=== PATIENT | female | born 1990 | race African-American/Black ===

== ENCOUNTER 2019-01-05 10:30 | Emergency (ER) | payer OTHER ==
[2019-01-05] MEDS ORDERED: Morphine 4 MG/ML VIAL ONE (11:54)
[2019-01-05 12:22] LABS: BHCG - Serum POSITIVE (NEGATIVE); Pregs Control Background? CLEAR/WHITE (CLR/WHITE); Pregs Control Bar Appear? YES (CONTROL BAR)
--- NOTE | 2019-01-05 12:48 | RAD ---
Exam: One view pelvis HISTORY: Fall. Pain. Trauma. FINDINGS: There appear to be chronic changes along the visualized left and right hip. Sacroiliac joints are patent and symmetric Sacral alar are preserved Bony pelvis appears to be intact. IMPRESSION: Chronic changes in the left and right hip. No obvious bony pelvic fracture.
--- NOTE | 2019-01-05 12:48 | RAD ---
Exam:3 views left ankle HISTORY: Fall. Trauma. Pain. COMPARISON: None FINDINGS: No fracture. No cortical irregularity. No periosteal reaction. IMPRESSION: No fracture.
--- NOTE | 2019-01-05 12:49 | RAD ---
Exam:Left tibia fibula 2 views HISTORY: Fall. Pain. COMPARISON: None FINDINGS: No fracture. No cortical irregularity. No periosteal reaction. IMPRESSION: No fracture.
--- NOTE | 2019-01-05 12:51 | RAD ---
Exam:Left femur 2 views HISTORY: Fall. Trauma. Pain. COMPARISON: None FINDINGS: There is evidence of previous internal fixation hardware placement involving the proximal l eft femur. No evidence of perihardware lucency. There is evidence of bony remodeling, callus formation and bone hypertrophy. The femoral head and acetabulum have a slightly irregular appearance. There appears to be degenerative change. An acute fracture is not appreciated. If the patient is unable to bear weight, additional imaging can be performed. IMPRESSION: 1. Internal fixation of a previous left hip fracture. Remote trauma with resultant degenerative bosch es are noted. Obvious fracture is not appreciated. 2. If the patient is unable to bear weight, additional imaging can be performed.
--- NOTE | 2019-01-05 12:51 | RAD ---
LEFT KNEE 5 VIEWS: Date: 01/05/19 HISTORY: Injury. Trauma. FINDINGS: Moderate degenerative changes are present. Mild narrowing of both medial and lateral joint spaces. Pr ominent spurring from the lateral joint compartment and spurring from the posterior patella. No evide nce of joint effusion. No evidence of fracture. IMPRESSION: Moderate degenerative changes of left knee. POS: [facility]
--- NOTE | 2019-01-05 13:22 | RAD ---
2 VIEWS LEFT HIP: Date: 01/05/19 COMPARISON: None. HISTORY: Stepped on a cement step which caused her to twist her leg. Left leg pain. FINDINGS: 2 views of the left hip show hardware in the proximal aspect of the left femur from prior fracture re pair. There is significant hypertrophic bone in this location. No acute fracture or dislocation seen. 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 IMPRESSION: 1. No evidence of acute osseous abnormality. 2. Moderate left hip osteoarthritis. POS: [facility]
== END 2019-01-05 13:19 | disposition home or self-care (01) ==
LOC: ERS 10:30
DX: O99.89 Other specified diseases and conditions complicating pregnancy, childbirth and the puerperium (principal); M79.605 Pain in left leg; O10.911 Unspecified pre-existing hypertension complicating pregnancy, first trimester; O99.331 Smoking (tobacco) complicating pregnancy, first trimester; F17.210 Nicotine dependence, cigarettes, uncomplicated; Z3A.01 Less than 8 weeks gestation of pregnancy; X50.1XXA Overexertion from prolonged static or awkward postures, initial encounter
CPT/HCPCS: 72170; 84703; 96374; J2270

== ENCOUNTER 2019-01-08 19:55 | Emergency (ER) | payer OTHER ==
[2019-01-08 21:26] LABS: #Basophils 0.1 thou/uL (0.0-0.2); #Eosinphils 0.4 thou/uL (0.0-0.7); #Lymphocytes 2.7 thou/uL (1.20-3.40); #Monocytes 0.6 thou/uL (0.11-0.59); #Neutrophils 5.8 thou/uL (1.40-6.50); %Basophils 0.9 % (0.0-1.0); %Eosinophils 4.5 % (0.0-10.0); %Lymphocytes 27.9 % (21.0-51.0); %Monocytes 6.4 % (0.0-10.0); %Neutrophils 60.3 % (42.0-75.0); Hemoglobin 12.3 g/dL (12.0-16.0); Mean Corpuscular Volume 87.4 fL (78.0-98.0); Platelet Count 336 thou/uL (130-400); RBC Distribution Width 13.3 % (11.5-14.5); Red Blood Cell (RBC) Count 4.39 mill/uL (4.20-5.40); White Blood Cell (WBC) Count 9.7 thou/uL (4.8-10.8)
--- NOTE | 2019-01-08 21:49 | ULT ---
Exam: Endovaginal pelvic ultrasound HISTORY: Pelvic pain. No bleeding. TECHNIQUE: Endovaginal imaging of the pelvis is performed. Ovaries are interrogated grayscale, color flow, Doppler imaging and spectral waveform analysis FINDINGS: Uterus is identified measuring 6.0 x 11.3 x 7.1 cm. There appear to be 2 separate gestational sacs. 2 yolk sacs are appreciated. There is one pole with a crown-rump length of 2.01 cm corresponding to a gestational age of 8 w eeks 4 days. heart tones with a rate of 173 bpm There is a second pole with a crown-rump length of 1.97 cm corresponding to gestational age of 8 weeks 4 days. heart tones with a rate of 175 bpm. There is no subchorionic hemorrhage. No free fluid Right ovary has a normal echotexture and measures 3.5 x 2.7 x 2.3 cm Left ovary has a normal echotexture measures 2.4 x 1.1 x 2.2 cm Ovarian Doppler: Vascular flow to the left and right ovary IMPRESSION: Twin intrauterine gestation with heart tones. Gestational age by crown-rump length is 8 weeks a nd 4 days Transcribed Date/Time: 01/08/2019 10:32 PM
[2019-01-08 22:48] LABS: Bilirubin Negative (Negative); Blood, Urine Negative (Negative); Clarity Clear (Clear); Glucose, Urine (Dipstick) Normal (Negative); Leukocyte Negative Leu/uL (Negative); Nitrite Negative (Negative); Protein, Urine (Dipstick) 30 mg/dL (Neg-Trace); RBC/HPF 0-3 HPF (0-3); Urobilinogen Normal mg/dL (Less than 2); WBC/HPF 0-3 HPF (0-3)
[2019-01-08 22:58] LABS: Bacteria/HPF 1+ HPF (None Seen)
== END 2019-01-08 23:13 | disposition home or self-care (01) ==
LOC: ERS 19:55
DX: O99.89 Other specified diseases and conditions complicating pregnancy, childbirth and the puerperium (principal); R10.30 Lower abdominal pain, unspecified; O99.331 Smoking (tobacco) complicating pregnancy, first trimester; F17.210 Nicotine dependence, cigarettes, uncomplicated; O16.1 Unspecified maternal hypertension, first trimester; Z3A.08 8 weeks gestation of pregnancy
CPT/HCPCS: 76856; 81003; 81015; 84702; 85025

== ENCOUNTER 2019-02-07 17:40 | Emergency (ER) | payer OTHER ==
[2019-02-07 18:16] LABS: #Basophils 0.1 thou/uL (0.0-0.2); #Eosinphils 0.3 thou/uL (0.0-0.7); #Lymphocytes 2.2 thou/uL (1.20-3.40); #Monocytes 0.9 thou/uL (0.11-0.59); #Neutrophils 4.2 thou/uL (1.40-6.50); %Basophils 1.3 % (0.0-1.0); %Lymphocytes 28.3 % (21.0-51.0); %Monocytes 11.3 % (0.0-10.0); %Neutrophils 55.2 % (42.0-75.0); Hemoglobin 12.2 g/dL (12.0-16.0); Mean Corpuscular HGB CONC 33.6 g/dL (32.0-36.0); Mean Corpuscular Volume 86.5 fL (78.0-98.0); Mean Platelet Volume 7.2 fL (7.4-10.4); Platelet Count 259 thou/uL (130-400); RBC Distribution Width 13.3 % (11.5-14.5); Red Blood Cell (RBC) Count 4.21 mill/uL (4.20-5.40); White Blood Cell (WBC) Count 7.7 thou/uL (4.8-10.8)
[2019-02-07 18:38] LABS: ALT (SGPT) 14 U/L (8-55); AST (SGOT) 13 U/L (5-34); Albumin 3.4 g/dL (3.5-5.0); Alkaline Phosphatase 49 U/L (40-110); Anion Gap 10 mmol/L (10-20); BUN (Urea Nitrogen) 12 mg/dL (7.0-18.7); Bilirubin, Total Less than 0.2 mg/dL (0.2-1.2); Calc. Creatinine Clearance 0 mL/min (70-130); Calcium 8.6 mg/dL (7.8-10.44); Carbon Dioxide 24 mmol/L (22-29); Chloride 105 mmol/L (98-107); Estimated GFR-MDRD Greater than 90; Globulin 3.3 g/dL (2.4-3.5); Glucose 95 mg/dL (70-105); Lipase 16 U/L (8-78); Potassium 3.6 mmol/L (3.5-5.1); Protein, Total 6.7 g/dL (6.0-8.3); Sodium 135 mmol/L (136-145)
[2019-02-07 20:11] LABS: Bilirubin Negative (Negative); Blood, Urine Negative (Negative); Clarity Clear (Clear); Glucose, Urine (Dipstick) Normal (Negative); Leukocyte Negative Leu/uL (Negative); Nitrite Negative (Negative); Protein, Urine (Dipstick) 20 mg/dL (Neg-Trace); Urobilinogen Normal mg/dL (Less than 2)
[2019-02-07 20:14] LABS: Pregnancy Test - Urine (BHCG) POSITIVE (Negative); Pregu Control Background? CLEAR/WHITE (CLR/WHITE); Pregu Control Bar Appear? YES (CONTROL BAR); Specific Gravity 1.034 (1.002-1.036)
--- NOTE | 2019-02-07 22:53 | ULT ---
TRANSVAGINAL PELVIC ULTRASOUND WITH DOPPLER: 02/07/19 HISTORY: Abdominal pain. Pelvic pain. No vaginal bleeding. FINDINGS: A twin live intrauterine is seen. TWIN A: Vertex position. Measurements correspond to an estimated gestational age of 12 weeks, 5 days and DON at 08/17/2019. The placenta is posterior. The heart rate measures 158 beats per minute. TWIN B: Transverse position. Measurements correspond to an estimated gestational age of 13 weeks, 3 days and DON at 08/12/2019. Seb centa is posterior. heart rate measures 150 beats per minute. A dividing membrane is seen between the two fetuses. Amniotic fluid is adequate. IMPRESSION: Twin live intrauterine as discussed above. POS: [facility]
== END 2019-02-07 22:03 | disposition left against medical advice (07) ==
LOC: ERS 17:40
DX: O99.89 Other specified diseases and conditions complicating pregnancy, childbirth and the puerperium (principal); R10.32 Left lower quadrant pain; Z3A.13 13 weeks gestation of pregnancy
CPT/HCPCS: 36415; 76856; 80053; 81003; 81025; 83690; 85025; 93976

== ENCOUNTER 2020-03-19 11:13 | Emergency (ER) | payer OTHER ==
--- NOTE | 2020-03-19 12:26 | RAD ---
EXAM: XR Elbow Rt 4 View STANDARD PROVIDED CLINICAL HISTORY: Pain FINDINGS: There is no evidence for fracture or other acute osseous abnormality. Alignment appears anatomic. Lorraine nt spaces appear preserved. IMPRESSION: No evidence for an acute osseous abnormality. If there is persistent clinical concern, conservative m anagement and follow-up imaging advised.
--- NOTE | 2020-03-19 12:27 | RAD ---
PELVIS 1 VIEW: HISTORY: Slipped and fell. COMPARISON: Radiograph 01/05/2019. FINDINGS: Dysplastic appearance of left femoral head and neck junction with fat in the articular surfaces. An intramedullary screw through the right femoral neck. No acute superimposed fracture or malalignment. Mild bilateral SI join degenerative change. IMPRESSION: No acute displaced fracture. POS: [facility]
--- NOTE | 2020-03-19 12:28 | RAD ---
EXAM: XR Knee Lt 4 View STANDARD PROVIDED CLINICAL HISTORY: Pain FINDINGS: There is no evidence for fracture or other acute osseous abnormality. Alignment appears anatomic. Deg enerative changes are seen, advanced for age and similar to 01/05/2019. IMPRESSION: No evidence for an acute osseous abnormality. If there is persistent clinical concern, conservative m anagement and follow-up imaging advised.
--- NOTE | 2020-03-19 13:34 | CT ---
EXAM: CT left knee without contrast PROVIDED CLINICAL HISTORY: Pain status post injury COMPARISON: None FINDINGS: There is no evidence for fracture. Osteophyte formation is seen about the knee, atypical for patient age. There is a moderate knee joint effusion. There is medial femorotibial joint space narrowing. There is a 6 mm ossified intra-articular body adjacent to the medial aspect of the tibial eminence. IMPRESSION: 1. No evidence for fracture. 2. Degenerative change, advanced for patient age. 3. Moderate knee joint effusion. If there is concern for internal derangement, consider nonemergent f ollow-up MRI.
[2020-03-19] MEDS ORDERED: Ketorolac Tromethamine 30 MG/ML VIAL ONE (13:59)
[2020-03-19] MEDS ORDERED: HYDROcodone/Acetaminophen 5/325 mg Tablet ONE (14:24)
== END 2020-03-19 15:03 | disposition home or self-care (01) ==
LOC: ERS 11:13
DX: M25.551 Pain in right hip (principal); M25.562 Pain in left knee; M25.521 Pain in right elbow; I10 Essential (primary) hypertension; W01.0XXA Fall on same level from slipping, tripping and stumbling without subsequent striking against object, initial encounter
CPT/HCPCS: 72170; 96372; J1885

== ENCOUNTER 2021-12-25 16:33 | Emergency (ER) | payer OTHER ==
[2021-12-25] MEDS ORDERED: Dexameth. Sod Phosp. 10 MG/ML (CHEMO USE ONLY) ONE (18:14)
[2021-12-25] MEDS ORDERED: Dexamethasone 10 MG/ML VIAL ONE (18:15)
== END 2021-12-25 18:30 | disposition home or self-care (01) ==
LOC: ERS 16:33
DX: J03.00 Acute streptococcal tonsillitis, unspecified (principal); I10 Essential (primary) hypertension; Z20.822 Contact with and (suspected) exposure to COVID-19
CPT/HCPCS: 71045; 87430; 87804; J1100; U0003; U0005

== ENCOUNTER 2023-02-20 08:40 | Emergency (ER) | payer OTHER ==
[2023-02-20] MEDS ORDERED: Ondansetron PF 4 MG/2 ML Vial ONE (09:07)
[2023-02-20] MEDS ORDERED: Morphine 4 MG/ML VIAL ONE (09:07)
[2023-02-20 09:11] LABS: #Eosinphils 0.2 thou/uL (0.0-0.7); #Monocytes 0.8 thou/uL (0.11-0.59); #Neutrophils 5.7 thou/uL (1.40-6.50); %Basophils 0.3 % (0.0-1.0); %Lymphocytes 28.8 % (21.0-51.0); %Monocytes 8.1 % (0.0-10.0); %Neutrophils 60.4 % (42.0-75.0); Hematocrit 38.8 % (36.0-47.0); Mean Corpuscular HGB CONC 33.5 g/dL (32.0-36.0); Mean Corpuscular Hemoglobin 28.6 pg (27.0-31.0); Mean Corpuscular Volume 85.5 fl (78.0-98.0); Mean Platelet Volume 9.8 fL (7.4-10.4); Platelet Count 310 10x3/uL (130-400); RBC Distribution Width 15.1 % (11.5-14.5); Red Blood Cell (RBC) Count 4.54 mill/uL (4.20-5.40); White Blood Cell (WBC) Count 9.4 10x3/uL (4.8-10.8)
[2023-02-20 09:38] LABS: ALT (SGPT) 221 U/L (8-55); AST (SGOT) 104 U/L (5-34); Albumin 3.5 g/dL (3.5-5.0); Alkaline Phosphatase 47 U/L (40-110); Anion Gap 15 mmol/L (10-20); BUN (Urea Nitrogen) 8 mg/dL (7.0-18.7); Bilirubin, Total 0.7 mg/dL (0.2-1.2); Calc. Creatinine Clearance 0 mL/min (70-130); Calcium 8.7 mg/dL (7.8-10.44); Carbon Dioxide 22 mmol/L (22-29); Chloride 104 mmol/L (98-107); Estimated GFR 107; Globulin 3.2 g/dL (2.4-3.5); Glucose 76 mg/dL (70-105); Lipase 6 U/L (8-78); Magnesium 1.8 mg/dL (1.6-2.6); Potassium 3.4 mmol/L (3.5-5.1); Protein, Total 6.7 g/dL (6.0-8.3); Sodium 138 mmol/L (136-145)
[2023-02-20 09:41] LABS: Troponin I Less than 0.010 ng/mL (< 0.028)
[2023-02-20 10:30] LABS: BHCG - Serum Negative (NEGATIVE); Pregs Control Background? CLEAR/WHITE (CLR/WHITE); Pregs Control Bar Appear? YES (CONTROL BAR)
[2023-02-20] MEDS ORDERED: Iopamidol-370 76% 500 ML MDV (1 ML CHARGE) ONE (14:27)
== END 2023-02-20 13:22 | disposition home or self-care (01) ==
LOC: ERS 08:40
DX: R06.02 Shortness of breath (principal); R79.89 Other specified abnormal findings of blood chemistry; Z98.84 Bariatric surgery status; I10 Essential (primary) hypertension; Z79.899 Other long term (current) drug therapy
CPT/HCPCS: 71275; 80053; 83690; 83735; 84484; 84703; 85025; 93005; 96374; 96375; J2270; J2405; Q9967

== ENCOUNTER 2023-04-27 08:26 | Emergency (ER) | payer OTHER ==
[2023-04-27] MEDS ORDERED: Ondansetron PF 4 MG/2 ML Vial ONE (09:40)
[2023-04-27] MEDS ORDERED: Morphine 4 MG/ML VIAL ONE (09:40)
[2023-04-27] MEDS ORDERED: Lidocaine 2% Viscous 10 mL, Alum & Magn 30 mL SSW SCH (09:45)
[2023-04-27 10:00] LABS: #Eosinphils 0.1 thou/uL (0.0-0.7); #Monocytes 0.7 thou/uL (0.11-0.59); #Neutrophils 5.2 thou/uL (1.40-6.50); %Basophils 0.3 % (0.0-1.0); %Eosinophils 1.4 % (0.0-10.0); %Lymphocytes 22.7 % (21.0-51.0); %Monocytes 9.1 % (0.0-10.0); %Neutrophils 66.2 % (42.0-75.0); Hematocrit 36.2 % (36.0-47.0); Mean Corpuscular HGB CONC 33.1 g/dL (32.0-36.0); Mean Corpuscular Hemoglobin 27.9 pg (27.0-31.0); Mean Corpuscular Volume 84.2 fl (78.0-98.0); Mean Platelet Volume 9.9 fL (7.4-10.4); Platelet Count 333 10x3/uL (130-400); RBC Distribution Width 15.6 % (11.5-14.5); White Blood Cell (WBC) Count 7.9 10x3/uL (4.8-10.8)
[2023-04-27 10:10] LABS: BHCG - Serum Negative (NEGATIVE); Pregs Control Background? CLEAR/WHITE (CLR/WHITE); Pregs Control Bar Appear? YES (CONTROL BAR)
[2023-04-27 10:25] LABS: ALT (SGPT) 34 U/L (8-55); AST (SGOT) 28 U/L (5-34); Albumin 3.6 g/dL (3.5-5.0); Alkaline Phosphatase 51 U/L (40-110); Anion Gap 13 mmol/L (10-20); BUN (Urea Nitrogen) 7 mg/dL (7.0-18.7); Bilirubin, Total 0.7 mg/dL (0.2-1.2); Calc. Creatinine Clearance 0 mL/min (70-130); Calcium 9.4 mg/dL (7.8-10.44); Carbon Dioxide 26 mmol/L (22-29); Chloride 102 mmol/L (98-107); Estimated GFR 115; Globulin 3.8 g/dL (2.4-3.5); Glucose 94 mg/dL (70-105); Magnesium 1.8 mg/dL (1.6-2.6); Potassium 3.1 mmol/L (3.5-5.1); Protein, Total 7.4 g/dL (6.0-8.3); Sodium 138 mmol/L (136-145)
[2023-04-27] MEDS ORDERED: Iopamidol-M 300 61% 15 ML VIAL ONE (10:36)
[2023-04-27] MEDS ORDERED: Iopamidol-370 76% 500 ML MDV (1 ML CHARGE) ONE (10:36)
[2023-04-27] MEDS ORDERED: Potassium Chloride 20 MEQ (100 mL) BAG ONE (10:40)
[2023-04-27] MEDS ORDERED: Potassium Chloride 20 MEQ TAB ONE (10:40)
[2023-04-27] MEDS ORDERED: Magnesium 2 GM/50 ML BAG (IN WATER) ONE (10:40)
[2023-04-27 12:31] LABS: Bilirubin 1+ (Negative); Blood, Urine 1+ (Negative); CAUTI Indications for Culture Alt mental st,lethar; Clarity Turbid (Clear); Glucose, Urine (Dipstick) Normal (Negative); Ketone, Urine 10 mg/dL (Negative); Leukocyte 500 Leu/uL (Negative); Nitrite Negative (Negative); Protein, Urine (Dipstick) 50 mg/dL (Neg-Trace); Specific Gravity, Urine 1.039 (1.002-1.036); WBC/HPF Greater than 50 HPF (0-3)
[2023-04-27 12:39] LABS: Bacteria/HPF 1+ HPF (None Seen)
[2023-04-27 12:50] LABS: Urine Culture Reflex Yes Yes
== END 2023-04-27 14:35 | disposition home or self-care (01) ==
LOC: ERS 08:26
DX: J02.9 Acute pharyngitis, unspecified (principal); N39.0 Urinary tract infection, site not specified; I10 Essential (primary) hypertension; Z55.6 Problems related to health literacy
CPT/HCPCS: 74177; 80053; 81001; 83735; 84100; 84703; 85025; 87077; 87086; 87186; 94760; 96365; 96375; J2270; J2405; J3475; J3480; Q9967